=== PATIENT | female | born 1955 ===

== ENCOUNTER 2020-06-12 19:30 | Inpatient (IN) | payer MEDICARE, MEDICAID ==
[~2020-06-12] VITALS: Ht 160 cm; Wt 74.5 kg
[2020-06-13] VITALS (7 sets, daily range): BP systolic 93–136; BP diastolic 44–84; BMI 29.3
[2020-06-13] MEDS ORDERED: ASPIRIN81 MG PO (02:12)
[2020-06-13] MEDS ORDERED: NASACORT10.8 ML (02:12)
[2020-06-13] MEDS ORDERED: LIPITOR40 MG PO (02:13)
[2020-06-13] MEDS ORDERED: COREG6.25 MG PO (02:13)
[2020-06-13] MEDS ORDERED: ENTRESTO 24 MG1 EACH PO (02:14)
[2020-06-13] MEDS ORDERED: CYCLOBENZAPRINE5 MG PO (02:14)
[2020-06-13] MEDS ORDERED: PEPCID AC20 MG PO (02:14)
[2020-06-13] MEDS ORDERED: PLAVIX75 MG PO (02:14)
[2020-06-13] MEDS ORDERED: FUROSEMIDE20 MG PO (02:15)
[2020-06-13] MEDS ORDERED: HYDROCODON-ACE1 EAC7 PO (02:19)
[2020-06-13] MEDS ORDERED: HUMALOG 30100 UNITS/ SC (02:20)
[2020-06-13] MEDS ORDERED: ISOSORBIDE MONO30 M1 PO (02:20)
[2020-06-13] MEDS ORDERED: LANTUS INS100 UNITS/ SC (02:21)
[2020-06-13] MEDS ORDERED: IMODIUM2 MG PO (02:22)
[2020-06-13] MEDS ORDERED: MELATONIN 3 MG1 TAB PO (02:22)
[2020-06-13] MEDS ORDERED: NITROSTAT0.4 MG SL (02:23)
[2020-06-13] MEDS ORDERED: ZOFRAN ODT4 MG/UDTAB PO (02:24)
[2020-06-13] MEDS ORDERED: ROPINIROLE HCL0.5 MG PO (02:24)
[2020-06-13] MEDS ORDERED: SLOW RELEASE I160 MG PO (02:25)
[2020-06-13] MEDS ORDERED: SANTYL30 GM TP (02:25)
[2020-06-13] MEDS ORDERED: ULTRAM50 MG PO (02:26)
[2020-06-13] MEDS ORDERED: VITAMIN D325 MC1 PO (02:26)
[2020-06-13] MEDS ORDERED: ANEFRIN15 ML NS (02:30)
[2020-06-13 06:30] LABS: BASOPHILS 0.2 % (0-2); HEMATOCRIT 25.6 % (36.0-48.0); IMMATURE GRANULOCYTES 0.2 % (0-5); LYMPHOCYTE ABS# 1.31 10x3/uL (1.18-3.74); LYMPHOCYTES 27.2 % (15-50); MCH 32.5 pg (26.0-34.0); MCHC 31.3 g/dL (31.0-37.0); MCV 104.1 fL (80.0-100.0); MEAN PLATELET VOLUME 9.4 fL (7.4-10.4); MONOCYTES 9.1 % (2-11); NEUTROPHIL ABS# 2.81 10x3/uL (1.56-6.13); NEUTROPHILS 58.3 % (40-80); PLATELET COUNT 211 10x3/uL (130-400); RBC 2.46 10x6/uL (4.00-5.40); RDW 18.2 % (11.5-14.5); WBC 4.8 10x3/uL (4.8-10.8)
[2020-06-13 07:14] LABS: APTT 25.1 SECONDS (22.8-39.4); INR 1.34 (0.85-1.17); PROTIME 15.4 SECONDS (11.6-15.0)
[2020-06-13 07:16] LABS: ANION GAP 12.2 mmol/L (8-16); CALCIUM 7.7 mg/dL (8.5-10.1); CARBON DIOXIDE 24.9 mmol/L (21.0-32.0); CREATININE - SERUM 0.9 mg/dL (0.6-1.3); PHOSPHOROUS 4.5 mg/dL (2.5-4.9); POTASSIUM - SERUM 4.1 mmol/L (3.5-5.1); VANCOMYCIN - RANDOM 23.4 ug/mL (10.0-20.0)
--- NOTE | 2020-06-13 07:20 | NUR ---
PATIENT HAD PAIN MANAGED WITH THE PRESCRIBED PAIN MEDICATIONS, DRESSING CHANGED ON LEFT BREAST, SHE VOICED NO CONCERNS.
--- NOTE | 2020-06-13 07:48 | NUR ---
ALERT AND ORIENTED. ASSESSMENT COMPLETE. BED LOW. CALL BROWN AND PERSONAL ITEMS IN REACH. GRANT CLAMPED FOR URINE SAMPLE. WILL CONTINUE TO MONITOR.
--- NOTE | 2020-06-13 09:40 | NUR ---
REHAB PRESCREENING Rehab referral received and chart reviewed. Ms. Redd is uninsured. Thank you for this referral! Cherise Helms, CRUDE UNIT OPERATOR Rehab [facility]
--- NOTE | 2020-06-13 09:56 | NUR ---
DRSG CHANGED TO LEFT BREAST PER ORDER.
--- NOTE | 2020-06-13 16:12 | NUR ---
DR ALEXIS PAGED TO CLARIFY WOUND CARE ORDERS D/T ALSO HAVING ORDERS FOR DAKINS AND SANTYL DAILY.
[2020-06-14] VITALS: BP 128/46
[2020-06-14 04:00] VITALS: BP 121/65
[2020-06-14 06:33] LABS: BASOPHILS 0.6 % (0-2); EOSINOPHILS 5.3 % (0-7); HEMATOCRIT 26.6 % (36.0-48.0); HEMOGLOBIN 8.3 g/dL (12-16); IMMATURE GRANULOCYTES 0.2 % (0-5); LYMPHOCYTE ABS# 1.51 10x3/uL (1.18-3.74); LYMPHOCYTES 30.8 % (15-50); MCH 32.7 pg (26.0-34.0); MCHC 31.2 g/dL (31.0-37.0); MCV 104.7 fL (80.0-100.0); MONOCYTES 12.6 % (2-11); NEUTROPHIL ABS# 2.48 10x3/uL (1.56-6.13); NEUTROPHILS 50.5 % (40-80); PLATELET COUNT 194 10x3/uL (130-400); RBC 2.54 10x6/uL (4.00-5.40); RDW 18.5 % (11.5-14.5); RETIC 1.99 % (0.45-2.28); WBC 4.9 10x3/uL (4.8-10.8)
[2020-06-14 06:40] LABS: % SATURATION 19 % (15-55); IRON 33 ug/dl (35-150); TOTAL IRON BIND CAPACITY 170 ug/dl (260-445); UNSAT IRON BIND CAPACITY 137 ug/dl (150-375)
[2020-06-14 07:13] LABS: CALCIUM 8.1 mg/dL (8.5-10.1); CARBON DIOXIDE 24.3 mmol/L (21.0-32.0); CREATININE - SERUM 1.1 mg/dL (0.6-1.3); MAGNESIUM - SERUM 1.9 mg/dL (1.8-2.4); PHOSPHOROUS 4.8 mg/dL (2.5-4.9); POTASSIUM - SERUM 4.3 mmol/L (3.5-5.1)
[2020-06-14 08:55] VITALS: BP 125/59
--- NOTE | 2020-06-14 09:19 | NUR ---
ALERT AND ORIENTED. ASSESSMENT COMPLETE. DENIES NEEDS. BED LOW. CALL BROWN AND PERSONAL ITEMS IN REACH. WILL CONTINUE TO MONITOR.
--- NOTE | 2020-06-14 09:55 | NUR ---
DRSG CHANGED TO LEFT BREAST PER ORDER. NO SIGNS INFECTION OR REDNESS AT THIS TIME.
[2020-06-14 12:37] VITALS: BP 160/70
[2020-06-14 13:22] VITALS: Ht 160 cm; Wt 74.5 kg
--- NOTE | 2020-06-14 13:35 | NUR ---
PATIENT SLEEPING. WILL CONTINUE TO MONITOR.
[2020-06-14 16:42] VITALS: BP 140/55
[2020-06-14 20:00] VITALS: BP 149/65
[2020-06-15] VITALS: BP 158/69
[2020-06-15 04:00] VITALS: BP 152/61
[2020-06-15 06:22] LABS: BASOPHILS 0.5 % (0-2); EOSINOPHILS 4.6 % (0-7); HEMATOCRIT 28.7 % (36.0-48.0); IMMATURE GRANULOCYTES 0.2 % (0-5); LYMPHOCYTE ABS# 1.17 10x3/uL (1.18-3.74); MCH 32.7 pg (26.0-34.0); MCHC 31.4 g/dL (31.0-37.0); MCV 104.4 fL (80.0-100.0); MEAN PLATELET VOLUME 9.3 fL (7.4-10.4); MONOCYTES 10.4 % (2-11); NEUTROPHIL ABS# 2.49 10x3/uL (1.56-6.13); NEUTROPHILS 57.3 % (40-80); PLATELET COUNT 203 10x3/uL (130-400); RBC 2.75 10x6/uL (4.00-5.40); WBC 4.3 10x3/uL (4.8-10.8)
[2020-06-15 06:41] LABS: ANION GAP 12.6 mmol/L (8-16); CALCIUM 8.6 mg/dL (8.5-10.1); CARBON DIOXIDE 23.3 mmol/L (21.0-32.0); CREATININE - SERUM 0.9 mg/dL (0.6-1.3); PHOSPHOROUS 3.7 mg/dL (2.5-4.9); POTASSIUM - SERUM 3.9 mmol/L (3.5-5.1)
[2020-06-15 09:16] VITALS: BP 143/83
--- NOTE | 2020-06-15 10:32 | NUR ---
I have reviewed this patient and I concur with the Shift Assessment completed by the Licensed Practical Nurse today this shift.
[2020-06-15 14:22] VITALS: BP 163/62
--- NOTE | 2020-06-15 14:30 | NUR ---
PT DRESSING CHANGED PER INSTRUCTION
--- NOTE | 2020-06-15 15:30 | NUR ---
W/D AND PT DRESSING REDONE WITH ISLAND BORDER DRESSING. STAYED IN PLACE. CL IN REACH. WCTM
[2020-06-15 18:32] VITALS: BP 127/61
[2020-06-15 21:25] VITALS: BP 99/45
--- NOTE | 2020-06-16 00:08 | NUR ---
Assumed care of pt after report/rounds. Pt was lying on bed watching TV. No c/o pain/discomfort. Walking boot remains to LLE and pt continues to refuse SCD's. No s/sx of hypo/hyperglycemia. IV to RFA remains patent and flushing well. Pt remains A&OX4 and verbalizes wants/needs clearly, appropriately and without hesitation or difficulty.
[2020-06-16 00:55] VITALS: BP 160/73
[2020-06-16 05:41] VITALS: BP 161/49
[2020-06-16 05:56] LABS: BASOPHILS 0.5 % (0-2); EOSINOPHILS 3.3 % (0-7); HEMATOCRIT 27.8 % (36.0-48.0); HEMOGLOBIN 8.6 g/dL (12-16); IMMATURE GRANULOCYTES 0.2 % (0-5); LYMPHOCYTE ABS# 0.87 10x3/uL (1.18-3.74); LYMPHOCYTES 20.6 % (15-50); MCH 32.2 pg (26.0-34.0); MCHC 30.9 g/dL (31.0-37.0); MCV 104.1 fL (80.0-100.0); MEAN PLATELET VOLUME 9.6 fL (7.4-10.4); MONOCYTES 14.2 % (2-11); NEUTROPHIL ABS# 2.58 10x3/uL (1.56-6.13); NEUTROPHILS 61.2 % (40-80); PLATELET COUNT 225 10x3/uL (130-400); RBC 2.67 10x6/uL (4.00-5.40); RDW 18.2 % (11.5-14.5); WBC 4.2 10x3/uL (4.8-10.8)
[2020-06-16 06:26] LABS: ANION GAP 12.1 mmol/L (8-16); CALCIUM 8.2 mg/dL (8.5-10.1); CREATININE - SERUM 0.9 mg/dL (0.6-1.3); PHOSPHOROUS 3.4 mg/dL (2.5-4.9); POTASSIUM - SERUM 4.1 mmol/L (3.5-5.1)
[2020-06-16 08:26] VITALS: BP 124/79
[2020-06-16 11:55] VITALS: BP 145/72
[2020-06-16 16:54] VITALS: BP 147/66
--- NOTE | 2020-06-16 20:31 | NUR ---
Assumed care of pt after report/rounds. Pt denies pain/discomfort. Pt teaching regarding new medication Alvo and s/e's to monitor for, when to call for help. Pt verbalized understanding. In bed resting at this time.
--- NOTE | 2020-06-17 04:27 | NUR ---
Pt remains resting in bed. Pt continues to have good output after IV lasix per order. Pt did have c/o BLE pain this noc with PRN Barclay given and eff results achieved.
[2020-06-17 06:15] VITALS: BP 153/64
[2020-06-17 06:35] LABS: BASOPHILS 0.8 % (0-2); EOSINOPHILS 4.6 % (0-7); HEMATOCRIT 28.2 % (36.0-48.0); HEMOGLOBIN 8.9 g/dL (12-16); LYMPHOCYTE ABS# 1.16 10x3/uL (1.18-3.74); LYMPHOCYTES 29.9 % (15-50); MCHC 31.6 g/dL (31.0-37.0); MCV 104.4 fL (80.0-100.0); MEAN PLATELET VOLUME 9.8 fL (7.4-10.4); MONOCYTES 12.1 % (2-11); NEUTROPHIL ABS# 2.04 10x3/uL (1.56-6.13); NEUTROPHILS 52.6 % (40-80); PLATELET COUNT 238 10x3/uL (130-400); RDW 18.3 % (11.5-14.5); WBC 3.9 10x3/uL (4.8-10.8)
[2020-06-17 06:39] LABS: ANION GAP 12.2 mmol/L (8-16); CALCIUM 8.4 mg/dL (8.5-10.1); CARBON DIOXIDE 25.7 mmol/L (21.0-32.0); CREATININE - SERUM 0.9 mg/dL (0.6-1.3); MAGNESIUM - SERUM 1.9 mg/dL (1.8-2.4); PHOSPHOROUS 4.1 mg/dL (2.5-4.9); POTASSIUM - SERUM 3.9 mmol/L (3.5-5.1)
--- NOTE | 2020-06-17 07:22 | NUR ---
RECIEVED BEDSIDE REPORT. IN BED AWAKE. DENIES NEEDS AT THIS TIME. FREE FROM SIGNS OF DISTRESS. BED LOW POSITION, CALL LIGHT IN REACH. WILL CONTINUE TO MONITOR.
--- NOTE | 2020-06-17 09:00 | NUR ---
CHANGED DRESSING TO LEFT BREAST PER ORDERS. SITE FREE FROM SIGNS OF INFECTION. WILL CONTINUE TO MONITOR.
[2020-06-17 09:03] VITALS: BP 149/52
--- NOTE | 2020-06-17 10:30 | NUR ---
GLAZING DEPARTMENT SUPERVISOR CALLED TO PREOP THE PATIENT. SAID THEY WERE ENTERING ORDERS AT THAT TIME. WHEN NURSE WENT IN TO ROOM TO OBTAIN CONSENT FOR THE PROCEDURE, PATIENT KNEW NOTHING ABOUT IT. NURSE CALLED THE GLAZING DEPARTMENT SUPERVISOR TO FIND OUT WHY AND ENDED UP FINDING OUT THAT THE HEART CATH PROCEDURE WAS SUPPOSE TO BE SCHEDULED FOR THE PATIENT IN 2304. REPORTED THIS TO [facility] ADULT EDUCATION PROFESSIONAL.
[2020-06-17 12:53] VITALS: BP 143/59
--- NOTE | 2020-06-17 15:52 | MORECARE ---
CASE MANAGEMENT DISCHARGE SUMMARY PATIENT: ELIZABETH WAGNER UNIT: [id number] ADM DATE: 06/12/20 AGE: 65 : 59 SEX: F [facility] AUTHOR: LAVERNE,DOC PHYSICIAN: REFERRING PHYSICIAN: TERESE BALTAZAR MD DATE OF SERVICE: 06/17/20 Case Management Discharge Planning Summary DCP REVIEW SUMMARY ANTICIPATED D/C DATE: EXPECTED LOS : CASE STATUS: DCP Initiated INITIAL REVIEW: 06/12/2020 INITIAL REVIEWER: Rosalva Hong FINAL DISCHARGE DISPOSITION: : FINAL REVIEWER: FINAL REVIEW DATE: DCP Focus Questions & Answers - Added on: QUESTION: ANSWER : PROVIDER NETWORKING REVIEW DATE: 06/17/2020 SERVICE TYPE: Residential Facility REVIEWER: Rosalva Hong PROVIDER: FINAL PROVIDER? : FINAL DATE/TIME: CT REVIEW DATE: 06/17/2020 SERVICE TYPE: Residential Facility REVIEWER: Rosalva Hong PATIENT: ELIZABETH WAGNER ENCOUNTER: [id number] MEDICAL RECORD#: [id number] ADMISSION DATE: 06/12/2020 DISCHARGE DATE: ATTENDING MD: TERESE DICKINSON : AGE: 65 MARITAL STATUS: S DC PLAN ID: [id number] FACILITY: [facility] PRINTED ON: 06/17/20 15:52 CT All edits/amendments must be made on the electronic document DICTATION DATE: 06/17/201551 DISTRIBUTION DISTRICT SUPERVISOR: DM 06/17/201551 RPT#: [id number] DC DATE: STATUS: ADM IN [facility] [address] [place] [address] END OF REPORT
[2020-06-17 16:01] VITALS: BP 138/59
--- NOTE | 2020-06-17 16:06 | MORECARE ---
CASE MANAGEMENT DISCHARGE SUMMARY PATIENT: ELIZABETH WAGNER UNIT: [id number] ADM DATE: 06/12/20 AGE: 65 : 59 SEX: F ROOM/BED: D.2205 AUTHOR: LAVERNE,DOC PHYSICIAN: REFERRING PHYSICIAN: TERESE BALTAZAR MD DATE OF SERVICE: 06/17/20 Case Management Discharge Planning Summary COMMENTS ENTERED DATE: 06/17/20 15:54 CT COMMENT TYPE: Discharge Planning REVIEWER: Rosalva Hong CM met with patient at bedside after obtaining verbal consent. CM discussed availability / needs of home health, REHAB and medical equipment. PATIENT STATES WOULD LIKE TO GO TO [facility] IN [place] FOR SNF. I HAVE FAXED REFERRAL TO THEM AND WAITING CALL BACK. PARIS AND IMM SIGNED AND COPY PLACED ON CHART. CM TO FOLLOW AND ASSIST NEEDED. DCP REVIEW SUMMARY ANTICIPATED D/C DATE: EXPECTED LOS : CASE STATUS: DCP Initiated INITIAL REVIEW: 06/12/2020 INITIAL REVIEWER: Rosalva Hong FINAL DISCHARGE DISPOSITION: : FINAL REVIEWER: FINAL REVIEW DATE: DCP Focus Questions & Answers DCP REV -DCP Review Added on: 06/17/20 3:52 pm QUESTION: ANSWER DCP Screen Walking limitation: Patient stated self rated walking limitation present? : Yes Age: : 47 - 66 Prior living environment: : Lives Alone Disability ranking: : Grade 3: Moderate disability DCP Evaluation Patient's ability to cope with chronic illness : d. No chronic illness Mental health screen: : No mental health history Would patient like to participate in any Care Coordination programs (if applicable): : Not applicable Physical Status: : Independent with ADL's Baseline cognitive status: : *Oriented to person, place, situation, time and present Living Arrangements: : Home Alone with No Support Medication Management: : Patient states can read and understand medication labels Pharmacy name(s): : [facility] Does Patient have transportation to get home and to follow-up medical appointments when discharged from the hospital? : Yes Does the patient have electricity at home? : Yes Does the patient have running water in their house? : Yes Equipment in use: : Walker - Rollator Other Equipment comments: : WC, WALKER Patient's current cognitive status: : *Oriented to person, place, situation, time and present Functional screen assessment: : Unable to manage ADLs without immediate ongoing assistance Patient with capacity for self-care or can be cared for in same environment as prior to hospitalization? : No Family / Caregiver's ability to cope with chronic illness: : a. Adequate (ability to meet patient's medical needs, ensures patient attends medical appts.) Does the patient have the ability to pay for or attain post discharge needs / services? : Yes Is there a likelihood that the patient will require additional services to return to the preadmission environment? : Yes Results of this evaluation have been discussed with: : Patient Patient and/or caregiver agree upon recommended discharge plan? : Yes Physical environment referral comments (if applicable): : [facility] DCP Re-evaluation Would patient like to participate in any Care Coordination programs (if applicable): : Not applicable PROVIDER NETWORKING REVIEW DATE: 06/17/2020 SERVICE TYPE: Alf Facility REVIEWER: Rosalva Hong PROVIDER: FINAL PROVIDER? : FINAL DATE/TIME: CT REVIEW DATE: 06/17/2020 SERVICE TYPE: Alf Facility REVIEWER: Rosalva Hong PATIENT: ELIZABETH WAGNER ENCOUNTER: [id number] MEDICAL RECORD#: [id number] ADMISSION DATE: 06/12/2020 DISCHARGE DATE: ATTENDING MD: TERESE DICKINSON : AGE: 65 MARITAL STATUS: S DC PLAN ID: [id number] FACILITY: [facility] PRINTED ON: 06/17/20 16:06 CT All edits/amendments must be made on the electronic document DICTATION DATE: 06/17/201605 OVEN ATTENDANT: DM 06/17/201605 RPT#: [id number] DC DATE: STATUS: ADM IN [facility] [address] [place] [address] END OF REPORT
[2020-06-17 20:00] VITALS: BP 130/53
--- NOTE | 2020-06-17 22:12 | NUR ---
Assumed care of pt after report/rounds. Pt did c/o nausea with Zofran given after med administration. Pt did have new meds ordered today and these were reviewed with her along with reiterating teachings about calling for noted changes or side effects from same.
[2020-06-18] VITALS: BP 119/50
[2020-06-18 04:00] VITALS: BP 121/43
--- NOTE | 2020-06-18 05:25 | NUR ---
Pt continues to rest in bed. Staff have been encouraging pt to poisition self in bed instead of relying on staff to do same. Pt does get easily worn out but, is able to perform the same activity. Pt is having very hard stools. Will discuss with days to monitor.
[2020-06-18 06:28] LABS: BASOPHILS 0.8 % (0-2); EOSINOPHILS 4.5 % (0-7); HEMATOCRIT 27.4 % (36.0-48.0); HEMOGLOBIN 8.7 g/dL (12-16); IMMATURE GRANULOCYTES 0.3 % (0-5); LYMPHOCYTE ABS# 0.98 10x3/uL (1.18-3.74); LYMPHOCYTES 26.1 % (15-50); MCHC 31.8 g/dL (31.0-37.0); MCV 103.8 fL (80.0-100.0); MEAN PLATELET VOLUME 9.2 fL (7.4-10.4); MONOCYTES 11.2 % (2-11); NEUTROPHIL ABS# 2.14 10x3/uL (1.56-6.13); NEUTROPHILS 57.1 % (40-80); PLATELET COUNT 244 10x3/uL (130-400); RBC 2.64 10x6/uL (4.00-5.40); RDW 18.4 % (11.5-14.5); WBC 3.8 10x3/uL (4.8-10.8)
[2020-06-18 06:39] LABS: ALBUMIN 2.9 g/dL (3.4-5.0); ANION GAP 15.6 mmol/L (8-16); BILIRUBIN - TOTAL 0.58 mg/dL (0.2-1.3); CALCIUM 8.4 mg/dL (8.5-10.1); CARBON DIOXIDE 24.5 mmol/L (21.0-32.0); POTASSIUM - SERUM 4.1 mmol/L (3.5-5.1); PROTEIN - SERUM 6.1 g/dL (6.4-8.2)
--- NOTE | 2020-06-18 07:20 | NUR ---
PT RESTING QUIETLY IN BED WITH EYES CLOSED. AWAKENS SPONTANEOUSLY UPON STAFF STATING NAME. RESP EVEN AND UNLABORED. PT DENIES PAIN AT THIS TIME. SALINE LOC TO RIGHT FOREARM. SITE WITHOUT REDNESS OR EDEMA. F/C PATENT TO GRAVITY. DENIES FURTHER NEEDS AT THIS TIME. CL WITHIN REACH. ENCOURAGED TO CALL WITH NEEDS. CONTINUE POC
[2020-06-18 08:38] VITALS: BP 147/66
[2020-06-18 12:15] VITALS: BP 116/80
[2020-06-18 15:49] VITALS: BP 114/52
--- NOTE | 2020-06-18 16:30 | NUR ---
OT NOTE: PT COMPLETED BED MOB WITH MAX A. PT COMPLETED SIMPLE HYGIENE TASKS WITH MIN A FOR UB. [phone] HERVE VILLEGAS COTA
--- NOTE | 2020-06-18 19:45 | NUR ---
RECEVIED BEDSIDE REPORT. PT LAYING IN BED A&O X4. PIV TO RIGHT FOREARM, PATENT AND S/L, NO REDNESS OR SWELLING. WOUND TO LEFT BREAST, DRSG C/D/I. LEFT ANKLE FX, BOOT IN PLACE. TELEMETRY IN PLACE, [address], DRAINING TO GRAVITY, STATLOCK IN PLACE. PT ON BEDREST, TOTAL CARE. EDUCATED PT ON CL AND NEEDS. BED LOW, CL IN REACH.
[2020-06-18 20:00] VITALS: BP 115/50
[2020-06-19] VITALS: BP 116/54
[2020-06-19 04:00] VITALS: BP 122/57
[2020-06-19 06:54] LABS: BASOPHILS 0.5 % (0-2); EOSINOPHILS 4.4 % (0-7); HEMATOCRIT 28.5 % (36.0-48.0); IMMATURE GRANULOCYTES 0.3 % (0-5); LYMPHOCYTE ABS# 1.03 10x3/uL (1.18-3.74); LYMPHOCYTES 26.8 % (15-50); MCH 32.8 pg (26.0-34.0); MCHC 31.6 g/dL (31.0-37.0); MEAN PLATELET VOLUME 9.2 fL (7.4-10.4); MONOCYTES 14.6 % (2-11); NEUTROPHIL ABS# 2.05 10x3/uL (1.56-6.13); NEUTROPHILS 53.4 % (40-80); PLATELET COUNT 237 10x3/uL (130-400); RBC 2.74 10x6/uL (4.00-5.40); RDW 18.7 % (11.5-14.5); WBC 3.8 10x3/uL (4.8-10.8)
[2020-06-19 07:11] LABS: ALBUMIN 2.7 g/dL (3.4-5.0); ANION GAP 11.3 mmol/L (8-16); BILIRUBIN - TOTAL 0.46 mg/dL (0.2-1.3); CALCIUM 8.5 mg/dL (8.5-10.1); CARBON DIOXIDE 27.4 mmol/L (21.0-32.0); CREATININE - SERUM 1.1 mg/dL (0.6-1.3); POTASSIUM - SERUM 3.7 mmol/L (3.5-5.1); PROTEIN - SERUM 6.1 g/dL (6.4-8.2)
--- NOTE | 2020-06-19 07:20 | NUR ---
PT ASLEEP, AROUSES WHEN HEARS STAFF TALKING. RESP EVEN AND UNLABORED. PT DENIES PAIN AT THIS TIME. SALINE LOC TO RIGHT FOREARM, SITE WITHOUT REDNESS OR EDEMA. WALKING BOOT TO LEFT LOWER EXTREMITY FROM PRIOR INJURY/FRACTURE. F/C PATENT TO GRAVITY. PT DENIES FURTHER NEEDS AT THIS TIME. CL WITHIN REACH. ENOCURGED TO CALL WITH NEEDS. CONTINUE POC
[2020-06-19 09:10] VITALS: BP 116/46
--- NOTE | 2020-06-19 10:23 | NUR ---
TRANSFER FROM [place] BY BED. DOBUTREX GTT STARTED. PT AT BS. WILL CONT. PLAN OF CARE.
[2020-06-19 11:32] VITALS: BP 137/45
--- NOTE | 2020-06-19 11:58 | MORECARE ---
CASE MANAGEMENT DISCHARGE SUMMARY PATIENT: ELIZABETH WAGNER UNIT: [id number] ADM DATE: 06/12/20 AGE: 65 : 59 SEX: F ROOM/BED: D.3327 AUTHOR: LAVERNE,DOC PHYSICIAN: REFERRING PHYSICIAN: TERESE BALTAZAR MD DATE OF SERVICE: 06/19/20 Case Management Discharge Planning Summary COMMENTS ENTERED DATE: 06/17/20 15:54 CT COMMENT TYPE: Discharge Planning REVIEWER: Rosalva Hong CM met with patient at bedside after obtaining verbal consent. CM discussed availability / needs of home health, REHAB and medical equipment. PATIENT STATES WOULD LIKE TO GO TO [facility] IN [place] FOR SNF. I HAVE FAXED REFERRAL TO THEM AND WAITING CALL BACK. [place] AND IMM SIGNED AND COPY PLACED ON CHART. CM TO FOLLOW AND ASSIST NEEDED. DCP REVIEW SUMMARY ANTICIPATED D/C DATE: EXPECTED LOS : CASE STATUS: DCP Initiated INITIAL REVIEW: 06/12/2020 INITIAL REVIEWER: Rosalva Hong FINAL DISCHARGE DISPOSITION: : FINAL REVIEWER: FINAL REVIEW DATE: DCP Focus Questions & Answers DCP REV -DCP Review Added on: 06/17/20 3:52 pm QUESTION: ANSWER DCP Screen Walking limitation: Patient stated self rated walking limitation present? : Yes Age: : 47 - 66 Prior living environment: : Lives Alone Disability ranking: : Grade 3: Moderate disability DCP Evaluation Patient's ability to cope with chronic illness : d. No chronic illness Mental health screen: : No mental health history Would patient like to participate in any Care Coordination programs (if applicable): : Not applicable Physical Status: : Independent with ADL's Baseline cognitive status: : *Oriented to person, place, situation, time and present Living Arrangements: : Home Alone with No Support Medication Management: : Patient states can read and understand medication labels Pharmacy name(s): : [facility] Does Patient have transportation to get home and to follow-up medical appointments when discharged from the hospital? : Yes Does the patient have electricity at home? : Yes Does the patient have running water in their house? : Yes Equipment in use: : Walker - Rollator Other Equipment comments: : WC, WALKER Patient's current cognitive status: : *Oriented to person, place, situation, time and present Functional screen assessment: : Unable to manage ADLs without immediate ongoing assistance Patient with capacity for self-care or can be cared for in same environment as prior to hospitalization? : No Family / Caregiver's ability to cope with chronic illness: : a. Adequate (ability to meet patient's medical needs, ensures patient attends medical appts.) Does the patient have the ability to pay for or attain post discharge needs / services? : Yes Is there a likelihood that the patient will require additional services to return to the preadmission environment? : Yes Results of this evaluation have been discussed with: : Patient Patient and/or caregiver agree upon recommended discharge plan? : Yes Physical environment referral comments (if applicable): : [facility] DCP Re-evaluation Would patient like to participate in any Care Coordination programs (if applicable): : Not applicable PROVIDER NETWORKING REVIEW DATE: 06/17/2020 SERVICE TYPE: Prison Facility REVIEWER: Rosalva Hong PROVIDER: FINAL PROVIDER? : FINAL DATE/TIME: CT REVIEW DATE: 06/17/2020 SERVICE TYPE: Prison Facility REVIEWER: Rosalva Hong PATIENT: ELIZABETH WAGNER ENCOUNTER: [id number] MEDICAL RECORD#: [id number] ADMISSION DATE: 06/12/2020 DISCHARGE DATE: ATTENDING MD: TERESE DICKINSON : AGE: 65 MARITAL STATUS: S DC PLAN ID: [id number] FACILITY: [facility] PRINTED ON: 06/19/20 11:58 CT All edits/amendments must be made on the electronic document DICTATION DATE: 06/19/201157 STYRENE DEHYDRATION REACTOR OPERATOR: DM 06/19/20 115 RPT#: [id number] DC DATE: STATUS: ADM IN [facility] [address] [place] [address] END OF REPORT
--- NOTE | 2020-06-19 12:21 | MORECARE ---
CASE MANAGEMENT DISCHARGE SUMMARY PATIENT: ELIZABETH WAGNER UNIT: [id number] ADM DATE: 06/12/20 AGE: 65 : 59 SEX: F ROOM/BED: D.8815 AUTHOR: LAVERNE,DOC PHYSICIAN: REFERRING PHYSICIAN: TERESE BALTAZAR MD DATE OF SERVICE: 06/19/20 Case Management Discharge Planning Summary COMMENTS ENTERED DATE: 06/19/20 12:12 CT COMMENT TYPE: Discharge Planning REVIEWER: Rosalva Hong FAXED UPDATES TO [facility] IN [place]. THEY ARE SUBMITTING CLINICALS TODAY FOR SNF. CM TO FOLLOW AND ASSIST NEEDED. ENTERED DATE: 06/17/20 15:54 CT COMMENT TYPE: Discharge Planning REVIEWER: Rosalva Hong CM met with patient at bedside after obtaining verbal consent. CM discussed availability / needs of home health, REHAB and medical equipment. PATIENT STATES WOULD LIKE TO GO TO [facility] IN [place] FOR SNF. I HAVE FAXED REFERRAL TO THEM AND WAITING CALL BACK. [place] AND IMM SIGNED AND COPY PLACED ON CHART. CM TO FOLLOW AND ASSIST NEEDED. DCP REVIEW SUMMARY ANTICIPATED D/C DATE: EXPECTED LOS : CASE STATUS: DCP Initiated INITIAL REVIEW: 06/12/2020 INITIAL REVIEWER: Rosalva Hong FINAL DISCHARGE DISPOSITION: : FINAL REVIEWER: FINAL REVIEW DATE: DCP Focus Questions & Answers DCP REV -DCP Review Added on: 06/17/20 3:52 pm QUESTION: ANSWER DCP Screen Walking limitation: Patient stated self rated walking limitation present? : Yes Age: : 47 - 66 Prior living environment: : Lives Alone Disability ranking: : Grade 3: Moderate disability DCP Evaluation Patient's ability to cope with chronic illness : d. No chronic illness Mental health screen: : No mental health history Would patient like to participate in any Care Coordination programs (if applicable): : Not applicable Physical Status: : Independent with ADL's Baseline cognitive status: : *Oriented to person, place, situation, time and present Living Arrangements: : Home Alone with No Support Medication Management: : Patient states can read and understand medication labels Pharmacy name(s): : [facility] Does Patient have transportation to get home and to follow-up medical appointments when discharged from the hospital? : Yes Does the patient have electricity at home? : Yes Does the patient have running water in their house? : Yes Equipment in use: : Walker - Rollator Other Equipment comments: : WC, WALKER Patient's current cognitive status: : *Oriented to person, place, situation, time and present Functional screen assessment: : Unable to manage ADLs without immediate ongoing assistance Patient with capacity for self-care or can be cared for in same environment as prior to hospitalization? : No Family / Caregiver's ability to cope with chronic illness: : a. Adequate (ability to meet patient's medical needs, ensures patient attends medical appts.) Does the patient have the ability to pay for or attain post discharge needs / services? : Yes Is there a likelihood that the patient will require additional services to return to the preadmission environment? : Yes Results of this evaluation have been discussed with: : Patient Patient and/or caregiver agree upon recommended discharge plan? : Yes Physical environment referral comments (if applicable): : [facility]ST[facility] Re-evaluation Would patient like to participate in any Care Coordination programs (if applicable): : Not applicable PROVIDER NETWORKING REVIEW DATE: 06/17/2020 SERVICE TYPE: Long Term Facility REVIEWER: Rosalva Hong PROVIDER: FINAL PROVIDER? : FINAL DATE/TIME: CT REVIEW DATE: 06/17/2020 SERVICE TYPE: Long Term Facility REVIEWER: Rosalva Hong PATIENT: ELIZABETH WAGNER ENCOUNTER: [id number] MEDICAL RECORD#: [id number] ADMISSION DATE: 06/12/2020 DISCHARGE DATE: ATTENDING MD: TERESE DICKINSON : AGE: 65 MARITAL STATUS: S DC PLAN ID: [id number] FACILITY: [facility] PRINTED ON: 06/19/20 12:21 CT All edits/amendments must be made on the electronic document DICTATION DATE: 06/19/201220 TROLLEY WORKER: FLORENTIN 06/19/20 122 RPT#: [id number] DC DATE: STATUS: ADM IN [facility] [address] [place] [address] END OF REPORT
--- NOTE | 2020-06-19 12:41 | NUR ---
OT NOTE: PT PERFORMED WELL TODAY; BED MOB INCLUDING SUPINE TO SIT WITH MOD ASSIST; EOB SITTING WITH GOOD BALANCE; ABLE TO PERFORM UE/ LE EXS WHILE ON EOB. PT SOB WITH EXERTION. PRACTICED SCOOTING UP IN BED X 6 ATTEMPTS. PT WITH LE WEAKNESS AND HAS DIFFICULTY USING R FOOT ONLY ( LEFT FOOT IS NWB).. LIO SINCLAIR, OTR/L [phone]
--- NOTE | 2020-06-19 12:46 | NUR ---
Nutrition follow-up: Diet order: Consistent CHO PO intake ~50% average of meals at this time Labs reviewed; Glucose under fair to good control Wt: 165# + hard BM PO intake is fair; pt just transferred to Med 2 Will continue to provide food choices and honor food preferences within diet restrictions. Will offer Ranajn Olivares Follow-up: 06/24/20
[2020-06-19 15:59] VITALS: BP 123/45
--- NOTE | 2020-06-19 18:55 | NUR ---
OT NOTE: PT COMPLETED BUE AROM EXERCISES TOLERATED. PT COMPLETED ORAL CARE WITH EMIR Sharp USING TOOTHETTE. PT COMPLETED FACE HYGIENE WITH SETUP. [phone] HERVE V[place]LEGAS COTA
--- NOTE | 2020-06-19 19:27 | NUR ---
RECIEVED BEDSIDE SHIFT REPORT. ALERT AND ORIENTED X4. BEDFAST D/T FX RT LEG WITH BOOT IN PLACE. DSG TO RT CHEST CDI. TELEMETRY IN PLACE.F/C PATENT WITH CLEAR YELLOW URINE DRAINING TO BEDSIDE DRAINAGE BAG. IV TO RT FA WITH CARDIZEM INFUSING AT 11.2/ HR. DENIES ANY NEEDS AT THIS TIME.
--- NOTE | 2020-06-19 23:45 | NUR ---
IV INFILTRATED. D/C'D IV WITH TIP INTACT. RESTARTED WITH ATTEMPTS X2. IV TO RT HAND. CARDIZEM RESTARTED.
[2020-06-20 01:08] VITALS: BP 100/46
[2020-06-20 05:33] VITALS: BP 125/49
[2020-06-20 05:45] LABS: BASOPHILS 0.8 % (0-2); EOSINOPHILS 3.8 % (0-7); HEMATOCRIT 26.3 % (36.0-48.0); HEMOGLOBIN 8.3 g/dL (12-16); IMMATURE GRANULOCYTES 0.3 % (0-5); LYMPHOCYTE ABS# 0.98 10x3/uL (1.18-3.74); LYMPHOCYTES 24.7 % (15-50); MCH 32.7 pg (26.0-34.0); MCHC 31.6 g/dL (31.0-37.0); MCV 103.5 fL (80.0-100.0); MEAN PLATELET VOLUME 9.2 fL (7.4-10.4); MONOCYTES 13.1 % (2-11); NEUTROPHIL ABS# 2.28 10x3/uL (1.56-6.13); NEUTROPHILS 57.3 % (40-80); PLATELET COUNT 241 10x3/uL (130-400); RBC 2.54 10x6/uL (4.00-5.40); RDW 18.9 % (11.5-14.5)
[2020-06-20 06:02] LABS: ALBUMIN 2.6 g/dL (3.4-5.0); ANION GAP 11.6 mmol/L (8-16); BILIRUBIN - TOTAL 0.4 mg/dL (0.2-1.3); CALCIUM 8.2 mg/dL (8.5-10.1); CARBON DIOXIDE 26.8 mmol/L (21.0-32.0); CREATININE - SERUM 1.2 mg/dL (0.6-1.3); POTASSIUM - SERUM 3.4 mmol/L (3.5-5.1); PROTEIN - SERUM 5.7 g/dL (6.4-8.2)
--- NOTE | 2020-06-20 08:01 | NUR ---
PT RECEIVED AWAKE AND ALERT. FEELING NAUSEATED TRYING TO TAKE K+ PILLS. ZOFRAN GIVEN PRIOR SHIFT, TOO EARLY FOR NEXT DOSE. THINKS BREAKFAST WILL HELP SETTLE IT. GRANT IN PLACE, DRESSING TO LEFT BREAST IS CDI. WALKING BOOT TO LEFT LEG.
[2020-06-20 08:18] VITALS: BP 125/47
--- NOTE | 2020-06-20 10:33 | NUR ---
OT NOTE: PT COMPLETED HAIR HYGIENE WITH MIN A. PT COMPLETED HAIR GROOMING WITH SETUP. PT COMPLETED ORAL CARE WITH SETUP. PT COMPLETED FACE AND HAND HYGIENE WITH SETUP. PT COMPLETED SUPINE TO SIT WITH CGA-MIN A. PT COMPLETED BED MOB WITH SBA. [phone] THANK YOU,URIAH PENA
[2020-06-20 11:46] VITALS: BP 105/46
--- NOTE | 2020-06-20 14:15 | NUR ---
OT NOTE: ATTEMPTED PM OT TMT, HOWEVER, PT REPORTED THAT SHE WAS VERY NAUSEATED. HAD EMESIS BAG IN HAND. LIO SWEET, OTR/L
[2020-06-20 16:11] VITALS: BP 107/46
--- NOTE | 2020-06-20 17:43 | NUR ---
PT WITH SOME CONTSTIPATION, ALMOST IMPACTION. TRIED TO DIGITALLY REMOVE SOME STOOL BUT SHE DID NOT TOLERATE AT ALL. WANTS TO SIT ON BEDPAN AND TRY AGAIN FOR BM.
--- NOTE | 2020-06-20 19:30 | NUR ---
RECEIVED REPORT, WILL ASSUME CARE OF PT, READING ON HER PHONE, DENIES ANY NEEDS AT THIS TIME, BED IS LOW, SRX2, CALL LIGHT IN REACH, WILL CONTINUE PLAN OF CARE
[2020-06-20 20:00] VITALS: BP 122/47
--- NOTE | 2020-06-21 02:25 | NUR ---
I have reviewed this patient and I concur with the Shift Assessment completed by the Licensed Practical Nurse today this shift.
[2020-06-21 03:30] VITALS: BP 113/46
[2020-06-21 04:32] LABS: BASOPHILS 0.3 % (0-2); HEMATOCRIT 26.4 % (36.0-48.0); HEMOGLOBIN 8.3 g/dL (12-16); IMMATURE GRANULOCYTES 0.3 % (0-5); LYMPHOCYTES 24.5 % (15-50); MCH 32.7 pg (26.0-34.0); MCHC 31.4 g/dL (31.0-37.0); MCV 103.9 fL (80.0-100.0); MONOCYTES 14.7 % (2-11); NEUTROPHIL ABS# 1.83 10x3/uL (1.56-6.13); NEUTROPHILS 56.2 % (40-80); PLATELET COUNT 247 10x3/uL (130-400); RBC 2.54 10x6/uL (4.00-5.40); RDW 19.1 % (11.5-14.5); WBC 3.3 10x3/uL (4.8-10.8)
[2020-06-21 04:48] LABS: ALBUMIN 2.7 g/dL (3.4-5.0); ANION GAP 9.3 mmol/L (8-16); BILIRUBIN - TOTAL 0.43 mg/dL (0.2-1.3); CARBON DIOXIDE 29.2 mmol/L (21.0-32.0); CREATININE - SERUM 1.3 mg/dL (0.6-1.3); POTASSIUM - SERUM 3.5 mmol/L (3.5-5.1); PROTEIN - SERUM 5.9 g/dL (6.4-8.2)
[2020-06-21 08:48] VITALS: BP 120/43
--- NOTE | 2020-06-21 10:39 | NUR ---
PT RECEIVED AWAKE AND ALERT IN BED. DOBUTAMINE GTT STOPPED PER ORDER AND LASIX STARTED. DRESSING TO LEFT BREAST IS CDI.
--- NOTE | 2020-06-21 10:59 | NUR ---
AREA AGENCY IN [place] CALLED CHECKING ON PT. 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 NUMBER IS [phone], FAX [phone]. SHE WOULD LIKE TO BE NOTIFIED WHEN SHE IS DISCHARGED PLEASE.
[2020-06-21 12:17] VITALS: BP 90/37
--- NOTE | 2020-06-21 12:46 | NUR ---
OT NOTE: PT DOING MUCH BETTER TODAY. PT REPORTED THAT HERSELF AND NURSING FOUND OUT WHY SHE HAS BEEN SO NAUSEATED AND THEY THINK IT IS BECAUSE OF THE ANTIBIOTIC. NO NAUSEA/VOMMITING TODAY. PT ABLE TO PERFORM SUPINE TO SIT WITH SBA; EOB SITTING WITH GOOD BALANCE; SIMPLE GROOMING TASKS WITH SET UP..PT WANTING TO ATTEMPT TRANSFER TO BS COMMODE.. REQUIRED MAX ASSIST X 2 DUE TO PT REMAINING NWB(AND BOOT IS EXTREMELEY HEAVY WHILE TRYING TO NWB)..PT VERY FATIGUED AND REQUIRED APPROX 7 MIN TO RECOUP FROM TRANSFER.. BACK TO BED WITH SAME AMOUNT OF ASSIST. AND ONCE AGAIN REQUIRED EXT REST BREAK. HOWEVER, PT WAS ABLE TO RETURN FROM SIT TO SUPINE WITHOUT ASSIST. PRACTICED HAVING PT SCOOT UP IN BED USING B RUDY AND Maurisio NGUYEN.. SHE PERFORMED WELL WITH THIS. LIO SINCLAIR, OTR/L [phone]
--- NOTE | 2020-06-21 16:53 | MORECARE ---
CASE MANAGEMENT DISCHARGE SUMMARY PATIENT: ELIZABETH WAGNER UNIT: [id number] ADM DATE: 06/12/20 AGE: 65 : 59 SEX: F ROOM/BED: D.1992 AUTHOR: LAVERNE,DOC PHYSICIAN: REFERRING PHYSICIAN: TERESE BALTAZAR MD DATE OF SERVICE: 06/21/20 Case Management Discharge Planning Summary CT Patient Name: ELIZABETH WAGNER Attending MD : TERESE NORTON Medical Record: [id number] Encounter : [id number] Facility : [address] [place] [address] Admission Date : 119:30 Center Discharge Date : [address] [place] [address] Date of : DC Plan ID : [id number] Age/Sex/Martia : 65/ F/S Printed on : 06/21/20 16:52 CT DCP Review Details Anticipated D/C: Expected LOS : Case Status : INITIATED - Initial Reviewe: [id number] - Rosalva Hong Initial Review: 06/12/2020 Planned Disposi: - Final Discharge: - Final Reviewer : : Final Review : Comments CT Entered Date Type Reviewer 06/21/20 16:39 CT Discharge Planning Marilin Mahoney Comment CM spoke with Citlaly at [facility]) and they have no beds. Flaquita states they can refer to [facility] ([facility] and transfer there when bed available. I spoke with the patient and she is agreeable to this. Clinical faxed to the [facility] and I spoke with Marcie. CM will continue to follow and assist with discharge planning/needs. 06/19/20 12:12 CT Discharge Planning Rosalva Hong Comment FAXED UPDATES TO [facility] IN [place]. THEY ARE SUBMITTING CLINICALS TODAY FOR SNF. CM TO FOLLOW AND ASSIST NEEDED. 06/17/20 15:54 CT Discharge Planning Rosalva Hong Comment CM met with patient at bedside after obtaining verbal consent. CM discussed availability / needs of home health, REHAB and medical equipment. PATIENT STATES WOULD LIKE TO GO TO [facility] IN [place] FOR SNF. I HAVE FAXED REFERRAL TO THEM AND WAITING CALL BACK. PARIS AND IMM SIGNED AND COPY PLACED ON CHART. CM TO FOLLOW AND ASSIST NEEDED. DCP Focus Questions & Answers DCP Screen Walking limitation: Patient stated self rated Yes walking limitation present? Age: 45 - 64 Prior living environment: Lives Alone Disability ranking: Grade 3: Moderate disability DCP Evaluation Patient's ability to cope with chronic illness d. No chronic illness Patient and/or caregiver agree upon recommended Yes discharge plan? Family / Caregiver's ability to cope with chronic a. Adequate (ability to meet patient's illness: medical needs, ensures patient attends medical appts.) Patient's current cognitive status: *Oriented to person, place, situation, time and present Does the patient have the ability to pay for or Yes attain post discharge needs / services? Functional screen assessment: Unable to manage ADLs without immediate ongoing assistance Physical Status: Independent with ADL's Is there a likelihood that the patient will Yes require additional services to return to the preadmission environment? Living Arrangements: Home Alone with No Support Results of this evaluation have been discussed Patient with: Patient with capacity for self-care or can be No cared for in same environment as prior to hospitalization? Baseline cognitive status: *Oriented to person, place, situation, time and present Physical environment referral comments (if [facility] applicable): Medication Management: Patient states can read and understand medication labels [facility]acy name([facility]): [facility] Does Patient have transportation to get home and Yes to follow-up medical appointments when discharged from the hospital? Would patient like to participate in any Care Not applicable Coordination programs (if applicable): Does the patient have electricity at home? Yes Does the patient have running water in their Yes house? Equipment in use: Walker - Rollator Other Equipment comments: MICHELET, WALKER Mental health screen: No mental health history DCP Re-evaluation Would patient like to participate in any Care Not applicable Coordination programs (if applicable): Provider Networking Review Da : 06/18/19ervice Ty: Snf Reviewer : Rosalva Hong Facility Referral [id number] Provider : Anson Misenheimer Sara Final Provi: [facility] ELIZABETH WAGNER MR#: [id number] /Age/Sex/Scdlfi6-Zjj-08 /65/F /S Attending Physician Name: TERESE BALTAZAR [id number] Patient Account:[id number] [facility] Page -1 of 1 All edits/amendments must be made on the electronic document DICTATION DATE: 03/26/21 1652 FISH LIVER SORTER: FLORENTIN 06/21/20 1652 RPT#: [id number] DC DATE: STATUS: ADM IN [facility] [address] [place] [address] END OF REPORT
--- NOTE | 2020-06-21 16:54 | NUR ---
OT NOTE: PT COMPLETED BED MOB WITH SBA. PT COMPLETED SUPINE TO SIT WITH SBA. PT COMPLETED FACE AND HAND HYGIENE AT EOB WITH SETUP. PT COMPLETED ORAL CARE WITH SETUP. PT COMPLETED HAIR GROOMING WITH SETUP. [phone] THANK YOU,URIAH PENA
[2020-06-21 16:58] VITALS: BP 101/47
--- NOTE | 2020-06-21 20:00 | NUR ---
RECEIVED REPORT, WILL ASSUME CARE OF PT, DENIES ANY NEEDS AT THIS TIME, BED IS LOW, SRX2, CALL LIGHT IN REACH, WILL CONTINUE PLAN OF CARE
[2020-06-21 21:44] VITALS: BP 95/46
[2020-06-22 01:07] VITALS: BP 95/44
--- NOTE | 2020-06-22 02:09 | NUR ---
I have reviewed this patient and I concur with the Shift Assessment completed by the Licensed Practical Nurse today this shift.
[2020-06-22 05:12] LABS: BASOPHILS 0.7 % (0-2); EOSINOPHILS 4.1 % (0-7); HEMATOCRIT 28.6 % (36.0-48.0); HEMOGLOBIN 8.9 g/dL (12-16); IMMATURE GRANULOCYTES 0.2 % (0-5); LYMPHOCYTE ABS# 1.11 10x3/uL (1.18-3.74); LYMPHOCYTES 26.9 % (15-50); MCH 32.7 pg (26.0-34.0); MCHC 31.1 g/dL (31.0-37.0); MCV 105.1 fL (80.0-100.0); MEAN PLATELET VOLUME 9.4 fL (7.4-10.4); MONOCYTES 14.3 % (2-11); NEUTROPHIL ABS# 2.22 10x3/uL (1.56-6.13); NEUTROPHILS 53.8 % (40-80); PLATELET COUNT 257 10x3/uL (130-400); RBC 2.72 10x6/uL (4.00-5.40); RDW 19.6 % (11.5-14.5); WBC 4.1 10x3/uL (4.8-10.8)
[2020-06-22 05:36] VITALS: BP 117/53
[2020-06-22 05:39] LABS: ALBUMIN 2.8 g/dL (3.4-5.0); BILIRUBIN - TOTAL 0.38 mg/dL (0.2-1.3); CALCIUM 8.5 mg/dL (8.5-10.1); CARBON DIOXIDE 27.6 mmol/L (21.0-32.0); PROTEIN - SERUM 6.4 g/dL (6.4-8.2)
[2020-06-22 05:45] LABS: ANION GAP 13.6 mmol/L (8-16); CREATININE - SERUM 1.7 mg/dL (0.6-1.3); POTASSIUM - SERUM 4.2 mmol/L (3.5-5.1)
[2020-06-22 09:48] VITALS: BP 110/51
--- NOTE | 2020-06-22 10:41 | NUR ---
DRSG CHANGED TO LEFT BREAST W-D WITH CLAUDIA.
[2020-06-22 11:53] VITALS: BP 128/50
[2020-06-22 17:43] VITALS: BP 129/48
[2020-06-22 21:07] VITALS: BP 102/50
[2020-06-23 05:11] LABS: EOSINOPHILS 4.3 % (0-7); HEMOGLOBIN 8.6 g/dL (12-16); IMMATURE GRANULOCYTES 0.5 % (0-5); LYMPHOCYTE ABS# 1.43 10x3/uL (1.18-3.74); LYMPHOCYTES 34.1 % (15-50); MCH 32.3 pg (26.0-34.0); MCHC 30.7 g/dL (31.0-37.0); MCV 105.3 fL (80.0-100.0); MEAN PLATELET VOLUME 9.3 fL (7.4-10.4); NEUTROPHIL ABS# 2.06 10x3/uL (1.56-6.13); NEUTROPHILS 49.1 % (40-80); PLATELET COUNT 233 10x3/uL (130-400); RBC 2.66 10x6/uL (4.00-5.40); RDW 19.5 % (11.5-14.5); WBC 4.2 10x3/uL (4.8-10.8)
[2020-06-23 05:39] LABS: ALBUMIN 2.8 g/dL (3.4-5.0); ANION GAP 13.3 mmol/L (8-16); BILIRUBIN - TOTAL 0.55 mg/dL (0.2-1.3); CALCIUM 8.3 mg/dL (8.5-10.1); CARBON DIOXIDE 24.8 mmol/L (21.0-32.0); CREATININE - SERUM 1.6 mg/dL (0.6-1.3); POTASSIUM - SERUM 4.1 mmol/L (3.5-5.1); PROTEIN - SERUM 6.2 g/dL (6.4-8.2)
[2020-06-23 06:14] VITALS: BP 110/49
[2020-06-23 08:44] VITALS: BP 125/65
[2020-06-23 15:35] VITALS: BP 113/50
[2020-06-23 19:00] VITALS: BP 115/57
[2020-06-24 04:00] VITALS: BP 118/57
[2020-06-24 05:24] LABS: BASOPHILS 0.4 % (0-2); EOSINOPHILS 3.9 % (0-7); HEMATOCRIT 27.6 % (36.0-48.0); HEMOGLOBIN 8.6 g/dL (12-16); IMMATURE GRANULOCYTES 0.4 % (0-5); LYMPHOCYTE ABS# 1.61 10x3/uL (1.18-3.74); LYMPHOCYTES 34.9 % (15-50); MCHC 31.2 g/dL (31.0-37.0); MCV 105.7 fL (80.0-100.0); MEAN PLATELET VOLUME 9.4 fL (7.4-10.4); MONOCYTES 12.1 % (2-11); NEUTROPHIL ABS# 2.22 10x3/uL (1.56-6.13); NEUTROPHILS 48.3 % (40-80); PLATELET COUNT 225 10x3/uL (130-400); RBC 2.61 10x6/uL (4.00-5.40); RDW 19.6 % (11.5-14.5); WBC 4.6 10x3/uL (4.8-10.8)
[2020-06-24 05:54] LABS: ALBUMIN 2.8 g/dL (3.4-5.0); ANION GAP 14.4 mmol/L (8-16); BILIRUBIN - TOTAL 0.52 mg/dL (0.2-1.3); CALCIUM 8.5 mg/dL (8.5-10.1); CARBON DIOXIDE 22.7 mmol/L (21.0-32.0); CREATININE - SERUM 1.6 mg/dL (0.6-1.3); POTASSIUM - SERUM 4.1 mmol/L (3.5-5.1); PROTEIN - SERUM 6.2 g/dL (6.4-8.2)
[2020-06-24 07:00] VITALS: BP 119/47
--- NOTE | 2020-06-24 08:47 | NUR ---
PT RECEIVED ASLEEP IN BED. RESTLESS. AROUSED TO VOICE, NOT SLEEPING WELL. COMPLAINTS OF SINUS CONGESTION, NO APPETITE.
[2020-06-24 11:00] VITALS: BP 120/51
--- NOTE | 2020-06-24 13:07 | NUR ---
Nutrition Reassessment/Follow-up: Pt reports poor appetite/PO intake & nausea. Would try Glucerna but does not like vanilla (only flavor available). Discussed in IDT meeting. Diet: Diabetic PO intake: 10-25% (06/23) Ht: 5'3"Wt: 164# (06/21); 165.3# (06/13)IBW: 115# Last BM: 06/23 Labs noted: BUN 31, Cre 1.6, GFR 34, Glu 128, Alb 2.8 Meds noted: Lasix, Florajen, Protonix, Humalog, zinc sulfate, vit C Est needs: 6904-2033 kcal/day (25-30 kcal/kg IBW) 45-60 g protein/day (0.6-0.8 g/kg actual BW) *Inadequate energy intake R/T nausea, poor appetite AEB poor PO intake reported. -Encourage PO intake and honor food preferences within diet restrictions. -Offer Glucerna with meals; unfortunately vanilla is the only flavor available. -RD will follow up within 2-3 days.
[2020-06-24 15:00] VITALS: BP 121/49
--- NOTE | 2020-06-24 16:47 | NUR ---
OT NOTE: PT COMPLETED SUPINE TO SIT WITH MIN A. PT COMPLETED BED TO BSC TRANSFER WITH MIN-MOD A USING RW. PT COMPLETED TOILET HYGIENE WITH MAX A. PT COMPLETED ORAL CARE WITH SETUP. PT COMPLETED HAIR GROOMING WITH SETUP. PT COMPLETED UB HYGIENE WITH SETUP. [phone] THANK YOU,URIAH PENA
--- NOTE | 2020-06-24 17:31 | MORECARE ---
CASE MANAGEMENT DISCHARGE SUMMARY PATIENT: ELIZABETH WAGNER UNIT: [id number] ADM DATE: 06/12/20 AGE: 65 : 59 SEX: F ROOM/BED: D.4855 AUTHOR: LAVERNE,DOC PHYSICIAN: REFERRING PHYSICIAN: TERESE BALTAZAR MD DATE OF SERVICE: 06/24/20 Case Management Discharge Planning Summary CT Patient Name: ELIZABETH WAGNER Attending MD : TERESE NORTON Medical Record: [id number] Encounter : [id number] Facility : [address] [place] [address] Admission Date : 119:30 Center Discharge Date : [address] [place] [address] Date of : DC Plan ID : [id number] Age/Sex/Martia : 65/ F/S Printed on : 06/24/20 17:29 CT DCP Review Details Anticipated D/C: Expected LOS : Case Status : INITIATED - Initial Reviewe: [id number] - Rosalva Hong Initial Review: 06/12/2020 Planned Disposi: - Final Discharge: - Final Reviewer : : Final Review : Comments CT Entered Date Type Reviewer 06/24/20 16:44 CT Discharge Planning Marilin Mahoney Comment CM received a call from Olivia from [facility]. Olivia states they have receive auth and will accept in am. I have informed Rosanne Heard. CM will continue to follow and assist with discharge planning/needs. 06/21/20 16:39 CT Discharge Planning Marilin Mahoney Comment CM spoke with Citlayl at [facility] ([facility] and they have no beds. Flaquita states they can refer to [facility] and transfer there when bed available. I spoke with the patient and she is agreeable to this. Clinical faxed to the [facility] and I spoke with Marcie. CM will continue to follow and assist with discharge planning/needs. 06/19/20 12:12 CT Discharge Planning Rosalva Hong Comment FAXED UPDATES TO [facility] IN [place]. THEY ARE SUBMITTING CLINICALS TODAY FOR SNF. CM TO FOLLOW AND ASSIST NEEDED. 06/17/20 15:54 CT Discharge Planning Rosalva Hong Comment CM met with patient at bedside after obtaining verbal consent. CM discussed availability / needs of home health, REHAB and medical equipment. PATIENT STATES WOULD LIKE TO GO TO [facility] [place] FOR SNF. I HAVE FAXED REFERRAL TO THEM AND WAITING CALL BACK. [place] AND IMM SIGNED AND COPY PLACED ON CHART. CM TO FOLLOW AND ASSIST NEEDED. DCP Focus Questions & Answers DCP Screen Walking limitation: Patient stated self rated Yes walking limitation present? Age: 45 - 64 Prior living environment: Lives Alone Disability ranking: Grade 3: Moderate disability DCP Evaluation Patient's ability to cope with chronic illness d. No chronic illness Patient and/or caregiver agree upon recommended Yes discharge plan? Family / Caregiver's ability to cope with chronic a. Adequate (ability to meet patient's illness: medical needs, ensures patient attends medical appts.) Patient's current cognitive status: *Oriented to person, place, situation, time and present Does the patient have the ability to pay for or Yes attain post discharge needs / services? Functional screen assessment: Unable to manage ADLs without immediate ongoing assistance Physical Status: Independent with ADL's Is there a likelihood that the patient will Yes require additional services to return to the preadmission environment? Living Arrangements: Home Alone with No Support Results of this evaluation have been discussed Patient with: Patient with capacity for self-care or can be No cared for in same environment as prior to hospitalization? Baseline cognitive status: *Oriented to person, place, situation, time and present Physical environment referral comments (if [facility] applicable): Medication Management: Patient states can read and understand medication labels Pharmacy name(s): [facility] Does Patient have transportation to get home and Yes to follow-up medical appointments when discharged from the hospital? Would patient like to participate in any Care Not applicable Coordination programs (if applicable): Does the patient have electricity at home? Yes Does the patient have running water in their Yes house? Equipment in use: Walker - Rollator Other Equipment comments: WC, WALKER Mental health screen: No mental health history DCP Re-evaluation Would patient like to participate in any Care Not applicable Coordination programs (if applicable): Provider Networking Review Da : 06/18/19ervice Ty: Snf Reviewer : Rosalva Hong Facility Referral [id number] Provider : Anson Weesatche Sara Final Provi: [facility] ELIZABETH WAGNER MR#: [id number] /Age/Sex/Ffvuvo9-Hyo-25 /65/F /S Attending Physician Name: TERESE BALTAZAR [id number] Patient Account:[id number] [facility] Page -1 of 1 All edits/amendments must be made on the electronic document DICTATION DATE: 06/24/201728 LINEN ROOM HOUSEPERSON: FLORENTIN 06/24/201728 RPT#: [id number] DC DATE: STATUS: ADM IN [facility] [address] [place] [address] END OF REPORT
--- NOTE | 2020-06-24 19:36 | NUR ---
RECIEVED LAYING IN BED WITH EYES CLOSED AND TV ON. EASILY AROUSES WITH VERBAL STIMULI. BEDSIDE COMMODE IN PLACE. BOOT TO RT LEG D/T PREVIOUS FX.. DSG UNDER LT BREAST CDI. REMAINS ON LOVENOX. IV TO RT HAND SL. F/C INTACT. DENIES ANY NEEDS AT THIS TIME.
[2020-06-24 20:00] VITALS: BP 132/58
[2020-06-25 04:00] VITALS: BP 131/83
[2020-06-25 05:38] LABS: BASOPHILS 0.9 % (0-2); EOSINOPHILS 2.1 % (0-7); HEMATOCRIT 27.4 % (36.0-48.0); HEMOGLOBIN 8.6 g/dL (12-16); IMMATURE GRANULOCYTES 0.4 % (0-5); LYMPHOCYTE ABS# 1.52 10x3/uL (1.18-3.74); LYMPHOCYTES 28.5 % (15-50); MCH 32.7 pg (26.0-34.0); MCHC 31.4 g/dL (31.0-37.0); MCV 104.2 fL (80.0-100.0); MEAN PLATELET VOLUME 9.8 fL (7.4-10.4); MONOCYTES 10.7 % (2-11); NEUTROPHIL ABS# 3.06 10x3/uL (1.56-6.13); NEUTROPHILS 57.4 % (40-80); PLATELET COUNT 242 10x3/uL (130-400); RBC 2.63 10x6/uL (4.00-5.40); RDW 19.6 % (11.5-14.5); WBC 5.3 10x3/uL (4.8-10.8)
[2020-06-25 06:00] LABS: ALBUMIN 2.7 g/dL (3.4-5.0); ANION GAP 13.4 mmol/L (8-16); BILIRUBIN - TOTAL 0.57 mg/dL (0.2-1.3); CALCIUM 8.1 mg/dL (8.5-10.1); CARBON DIOXIDE 23.4 mmol/L (21.0-32.0); CREATININE - SERUM 1.4 mg/dL (0.6-1.3); POTASSIUM - SERUM 3.8 mmol/L (3.5-5.1); PROTEIN - SERUM 6.1 g/dL (6.4-8.2)
[2020-06-25 07:00] VITALS: BP 126/46
[2020-06-25] MEDS ORDERED: ZINC-220220 MG PO (11:02)
[2020-06-25] MEDS ORDERED: LASIX40 MG PO (11:02)
[2020-06-25] MEDS ORDERED: FLORAJEN3 CAPS460 MG PO (11:02)
[2020-06-25] MEDS ORDERED: DAKIN'S 0.25%480 ML TOPICAL (11:02)
[2020-06-25] MEDS ORDERED: MEGACE40 MG PO (11:03)
[2020-06-25] MEDS ORDERED: VITAMIN C PO (11:03)
[2020-06-25] MEDS ORDERED: MIRALAX17 GM PO (11:03)
[2020-06-25 12:00] VITALS: BP 124/51
[2020-06-25] MEDS ORDERED: ULTRAM50 MG PO (13:03)
--- NOTE | 2020-06-25 14:49 | NUR ---
CALLED REPORT TO YUNI [facility]AD[facility]. PT LEFT VIA WHEELCHAIR WITH TRANSPORT TO FACILITY.
--- NOTE | 2020-06-25 17:22 | NUR ---
OT NOTE: PT COMPLETED BED MOBILITY WITH SBA. PT COMPLETED SUPINE TO SIT WITH SBA. PT COMPLETED UB BATHING TASKS WITH SETUP. PT COMPLETED LB BATHING TASKS WITH MIN A. PT COMPLETED ORAL HYGIENE WITH SETUP. PT COMPLETED HAIR GROOMING WITH SETUP. PT COMPLETED NAIL CARE WITH SETUP. [phone] THANK YOU,HERVE [email or web address].KRUSE
--- NOTE | 2020-06-27 03:56 | MORECARE ---
CASE MANAGEMENT DISCHARGE SUMMARY PATIENT: ELIZABETH WAGNER UNIT: [id number] ADM DATE: 06/12/20 AGE: 65 : 59 SEX: F ROOM/BED: D.2649 AUTHOR: LAVERNE,DOC PHYSICIAN: REFERRING PHYSICIAN: TERESE BALTAZAR MD DATE OF SERVICE: 06/27/20 Case Management Discharge Planning Summary CT Patient Name: ELIZABETH WAGNER Attending MD : TERESE NORTON Medical Record: [id number] Encounter : [id number] Facility : [address] [place] [address] Admission Date : 119:30 Center Discharge Date : 06/25/[address] [place] [address] Date of : DC Plan ID : [id number] Age/Sex/Martia : 65/ F/S Printed on : 06/27/20 3:54 CT DCP Review Details Anticipated D/C: Expected LOS : Case Status : INITIATED - Initial Reviewe: [id number] - Rosalva Hong Initial Review: 06/12/2020 Planned Disposi: - Final Discharge: - Final Reviewer : : Final Review : Comments CT Entered Date Type Reviewer 06/24/20 16:44 CT Discharge Planning Marilin Mahoney Comment CM received a call from Olivia from [facility]. Olivia states they have receive auth and will accept in am. I have informed Rosanne Orquidea. CM will continue to follow and assist with discharge planning/needs. 06/21/20 16:39 CT Discharge Planning Marilin Mahoney Comment CM spoke with Citlaly at [facility] and they have no beds. Flaquita states they can refer to [facility] ([facility]) and transfer there when bed available. I spoke with the patient and she is agreeable to this. Clinical faxed to the [facility] and I spoke with Marcie. CM will continue to follow and assist with discharge planning/needs. 06/19/20 12:12 CT Discharge Planning Rosalva Hong Comment FAXED UPDATES TO [facility] IN [place]. THEY ARE SUBMITTING CLINICALS TODAY FOR SNF. CM TO FOLLOW AND ASSIST NEEDED. 06/17/20 15:54 CT Discharge Planning Rosalva Hong Comment CM met with patient at bedside after obtaining verbal consent. CM discussed availability / needs of home health, REHAB and medical equipment. PATIENT STATES W[facility] TO [facility] [place] FOR SNF. I HAVE FAXED REFERRAL TO THEM AND WAITING CALL BACK. [place] AND IMM SIGNED AND COPY PLACED ON CHART. CM TO FOLLOW AND ASSIST NEEDED. DCP Focus Questions & Answers DCP Screen Walking limitation: Patient stated self rated Yes walking limitation present? Age: 45 - 64 Prior living environment: Lives Alone Disability ranking: Grade 3: Moderate disability DCP Evaluation Patient's current cognitive status: *Oriented to person, place, situation, time and present Family / Caregiver's ability to cope with chronic a. Adequate (ability to meet patient's illness: medical needs, ensures patient attends medical appts.) Patient and/or caregiver agree upon recommended Yes discharge plan? Patient's ability to cope with chronic illness d. No chronic illness Physical Status: Independent with ADL's Functional screen assessment: Unable to manage ADLs without immediate ongoing assistance Does the patient have the ability to pay for or Yes attain post discharge needs / services? Living Arrangements: Home Alone with No Support Is there a likelihood that the patient will Yes require additional services to return to the preadmission environment? Baseline cognitive status: *Oriented to person, place, situation, time and present Patient with capacity for self-care or can be No cared for in same environment as prior to hospitalization? Results of this evaluation have been discussed Patient with: Medication Management: Patient states can read and understand medication labels Physical environment referral comments (if [facility] applicable): [facility]acy name(s): [facility] Does Patient have transportation to get home and Yes to follow-up medical appointments when discharged from the hospital? Would patient like to participate in any Care Not applicable Coordination programs (if applicable): Does the patient have electricity at home? Yes Does the patient have running water in their Yes house? Equipment in use: Walker - Rollator Other Equipment comments: CARLENE TAFOYA Mental health screen: No mental health history DCP Re-evaluation Would patient like to participate in any Care Not applicable Coordination programs (if applicable): Provider Networking Review Da : 06/18/19ervice Ty: Half-Way Reviewer : Rosalva Hong Facility Referral [id number] Provider : [facility] Sara Final Provi: [facility] ELIZABETH WAGNER MR#: [id number] /Age/Sex/Atflwv4-Jmp-05 /65/F /S Attending Physician Name: TERESE BALTAZAR [id number] Patient Account:[id number] [facility] Page -1 of 1 All edits/amendments must be made on the electronic document DICTATION DATE: 06/27/20353 WELL SERVICES OPERATOR: FLORENTIN 06/27/20353 RPT#: [id number] DC DATE:06/25/20 STATUS: DIS IN [facility] [address] [place] [address] END OF REPORT
--- NOTE | 2020-06-27 11:59 | MORECARE ---
CASE MANAGEMENT DISCHARGE SUMMARY PATIENT: ELIZABETH WAGNER UNIT: [id number] ADM DATE: 06/12/20 AGE: 65 : 59 SEX: F ROOM/BED: D.1959 AUTHOR: LAVERNE,DOC PHYSICIAN: REFERRING PHYSICIAN: TERESE BALTAZAR MD DATE OF SERVICE: 06/27/20 Case Management Discharge Planning Summary CT Patient Name: ELIZABETH WAGNER Attending MD : TERESE NORTON Medical Record: [id number] Encounter : [id number] Facility : [address] [place] [address] Admission Date : 119:30 Center Discharge Date : 06/25/2020 On license of [facility] [place] [address] Date of : DC Plan ID : [id number] Age/Sex/Martia : 65/ F/S Printed on : 06/27/20 11:58 CT DCP Review Details Anticipated D/C: Expected LOS : Case Status : INITIATED - Initial Reviewe: [id number] - Rosalva Hong Initial Review: 06/12/2020 Planned Disposi: - Final Discharge: - Final Reviewer : : Final Review : Comments CT Entered Date Type Reviewer 06/24/20 16:44 CT Discharge Planning Marilin Mahoney Comment CM received a call from Olivia from [facility]. Olivia states they have receive auth and will accept in am. I have informed Rosanne Orquidea. CM will continue to follow and assist with discharge planning/needs. 06/21/20 16:39 CT Discharge Planning Mairlin Mahoney Comment CM spoke with Citlaly at [facility] ([facility] and they have no beds. Flaquita states they can refer to [facility] ([facility]) and transfer there when bed available. I spoke with the patient and she is agreeable to this. Clinical faxed to the [facility] and I spoke with Marcie. CM will continue to follow and assist with discharge planning/needs. 06/19/20 12:12 CT Discharge Planning Rosalva Hong Comment FAXED UPDATES TO [facility] IN [place]. THEY ARE SUBMITTING CLINICALS TODAY FOR SNF. CM TO FOLLOW AND ASSIST NEEDED. 06/17/20 15:54 CT Discharge Planning Rosalva Hong Comment CM met with patient at bedside after obtaining verbal consent. CM discussed availability / needs of home health, REHAB and medical equipment. PATIENT STATES WOULD LIKE TO GO [facility] [place] FOR SNF. I HAVE FAXED REFERRAL TO THEM AND WAITING CALL BACK. [place] AND IMM SIGNED AND COPY PLACED ON CHART. CM TO FOLLOW AND ASSIST NEEDED. DCP Focus Questions & Answers DCP Screen Walking limitation: Patient stated self rated Yes walking limitation present? Age: 45 - 64 Prior living environment: Lives Alone Disability ranking: Grade 3: Moderate disability DCP Evaluation Patient's ability to cope with chronic illness d. No chronic illness Patient and/or caregiver agree upon recommended Yes discharge plan? Family / Caregiver's ability to cope with chronic a. Adequate (ability to meet patient's illness: medical needs, ensures patient attends medical appts.) Patient's current cognitive status: *Oriented to person, place, situation, time and present Does the patient have the ability to pay for or Yes attain post discharge needs / services? Functional screen assessment: Unable to manage ADLs without immediate ongoing assistance Physical Status: Independent with ADL's Is there a likelihood that the patient will Yes require additional services to return to the preadmission environment? Living Arrangements: Home Alone with No Support Results of this evaluation have been discussed Patient with: Patient with capacity for self-care or can be No cared for in same environment as prior to hospitalization? Baseline cognitive status: *Oriented to person, place, situation, time and present Physical environment referral comments (if [facility] applicable): Medication Management: Patient states can read and understand medication labels [facility] name([facility] Does Patient have transportation to get home and Yes to follow-up medical appointments when discharged from the hospital? Would patient like to participate in any Care Not applicable Coordination programs (if applicable): Does the patient have electricity at home? Yes Does the patient have running water in their Yes house? Equipment in use: Walker - Rollator Other Equipment comments: CARLENE TAFOYA Mental health screen: No mental health history DCP Re-evaluation Would patient like to participate in any Care Not applicable Coordination programs (if applicable): Provider Networking Review Da : 06/18/19ervice Ty: [facility] Reviewer : Rosalva Hong Facility Referral [id number] Provider : [facility] Sara Final Provi: [facility] ELIZABETH WAGNER MR#: [id number] /Age/Sex/Lkrqnk4-Sbd-95 /65/F /S Attending Physician Name: TERESE BALTAZAR [id number] Patient Account:[id number] [facility] Page -1 of 1 All edits/amendments must be made on the electronic document DICTATION DATE: 06/27/201157 PIPING DESIGN SPECIALIST: FLORENTIN 06/27/201157 RPT#: [id number] DC DATE:06/25/20 STATUS: DIS IN [facility] [address] [place] [address] END OF REPORT
== END 2020-06-25 13:37 | DRG 919 ==
LOC: D.MS 19:30 → D.M2 06-19 10:00
PROVIDERS: Family Medicine; ADMIT Emergency Medicine; ATTEND Emergency Medicine
DX: T81.89XA Other complications of procedures, not elsewhere classified, initial encounter (principal); I50.33 Acute on chronic diastolic (congestive) heart failure; I11.0 Hypertensive heart disease with heart failure; Y83.9 Surgical procedure, unspecified as the cause of abnormal reaction of the patient, or of later complication, without mention of misadventure at the time of the procedure; E78.5 Hyperlipidemia, unspecified; K21.9 Gastro-esophageal reflux disease without esophagitis; E11.9 Type 2 diabetes mellitus without complications; D50.9 Iron deficiency anemia, unspecified; Z79.01 Long term (current) use of anticoagulants; I25.10 Atherosclerotic heart disease of native coronary artery without angina pectoris